=== PATIENT | male | born 1970 | race Caucasian/White ===

== ENCOUNTER → 2018-07-16 | Outpatient (CLI) | payer OTHER ==
[2018-07-16 13:40] LABS: ALBUMIN 3.9 gm/dl (3.1-4.5); ALKALINE PHOSPHATASE 50 U/L (45-117); BUN 8 mg/dl (7-24); CHLORIDE 105 mmol/L (98-107); CHOLESTEROL 208 mg/dL (<200); CREATININE 0.91 mg/dL (0.70-1.30); HDL CHOLESTEROL 53 mg/dl (40-60); LDL CHOLESTEROL 107 mg/dL (9-159); POTASSIUM 4.2 mmol/L (3.5-5.1); SGOT/AST 30 IU/L (3-35); SGPT/ALT 42 U/L (12-78); SODIUM 140 mmol/L (136-145); TOTAL PROTEIN 7.7 gm/dL (6.4-8.2); TRIGLYCERIDES 239 mg/dl (<150); VLDL CHOLESTEROL 48 mg/dL (6-40)
== END | disposition home or self-care (01) ==
LOC: LAB 12:40
PROVIDERS: Internal Medicine Cardiovascular Disease
DX: R07.9 Chest pain, unspecified (principal)

== ENCOUNTER → 2018-07-24 | Outpatient (CLI) | payer OTHER ==
--- NOTE | ~2018-07-24 | ST ---
[place], [place] EXERCISE STRESS TEST REPORT NAME: KATHERINE BAER UNIT #: [id number] ROOM: DOCTOR: GEORGETTE RABAGO MD BIRTHDATE: [birth year] DOS: 07/24/2018 EXERCISE STRESS TEST REPORT REFERRING PHYSICIAN: Dr. Quintana INDICATION: Central chest pain. The patient underwent standard Edgar protocol exercise stress testing. The patient's baseline EKG is sinus claudine with no ischemic changes. Heart rate 52 with blood pressure 110/72. The patient's peak heart rate was 167, which represents 97% of maximum predicted. The patient's peak blood pressure is 168/68. The patient's peak heart rate of 167 represents 97% maximum predicted with him reaching a peak metabolic level of 16 METs. The patient exercised for 13 minutes and 10 seconds. The patient has noted no chest pain or anginal symptoms. The patient had no ischemic changes. The patient had no arrhythmias. SUMMARY OF FINDINGS: 1. Negative exercise treadmill stress test to a very high level of exertion. 2. Romano Treadmill score 16 portending a very low risk prognosis. GEORGETTE RABAGO MD CM:STRESS:EXERCISE STRESS TEST REPORT [id number] GEORGETTE RABAGO MD
== END | disposition home or self-care (01) ==
LOC: CARD 03:28
DX: R07.89 Other chest pain (principal)